=== PATIENT | male | born 2000 | race Hispanic/Latino ===

== ENCOUNTER 2022-02-24 23:23 | Emergency (ER) | payer SELFPAY ==
[2022-02-25] MEDS ORDERED: Acetaminophen 500 MG TAB ONE (00:06)
== END 2022-02-25 01:55 | disposition home or self-care (01) ==
LOC: ERS 23:23
DX: R09.81 Nasal congestion (principal); R05.9 Cough, unspecified; Z20.822 Contact with and (suspected) exposure to COVID-19
CPT/HCPCS: 99283; U0003; U0005

== ENCOUNTER 2022-06-18 09:19 | Emergency (ER) | payer SELFPAY | END 2022-06-18 12:06 | disposition home or self-care (01) | LOC: ERS 09:19 | DX: J45.901 Unspecified asthma with (acute) exacerbation (principal) | CPT/HCPCS: 94640; J7620 ==